=== PATIENT | male | born 1965 | race Caucasian/White ===

== ENCOUNTER 2023-08-13 10:52 | Emergency (ER) | payer OTHER ==
[~2023-08-13] VITALS: Ht 177.8 cm; Wt 101.2 kg
[~2023-08-13 10:52] MED LIST: BEE POLLEN580 MG PO; CIPRO500 MG PO; MULTI VITAMIN1 EACH PO; VITAMIN C500 M4 PO
--- OUTSIDE RECORDS SUMMARY | 2023-08-13 11:02 | XMS ---
PreManage Notification: SHEILA PACHECO [employer] Events No recent Security Events currently on file CRITERIA MET - [facility] - 2 Visits in 30 Days CARE PROVIDERS STEPHANIE [facility] Current PHONE: [phone] Merry has no Care Guidelines for this patient. E.Sonya VISIT COUNT (12 MO.) [address] [place] [address] TOTAL 2 NOTE: Visits indicate total known visits. ED/UCC VISIT TRACKING (12 MO.) 08/13/2023 10:[address] [facility] [place] TYPE: Emergency COMPLAINT: - L HIP PAIN 08/09/2023 16:03 [facility] TYPE: Emergency COMPLAINT: - Fell DIAGNOSES: - Disorder of bone, unspecified - Malignant (primary) neoplasm, unspecified - Strain of muscle, fascia and tendon of unspecified hip, initial encounter - Unspecified injury of muscle, fascia and tendon of the posterior muscle group at thigh level, left thigh, initial encounter - Fall - Fell INPATIENT VISIT TRACKING (12 MO.) No inpatient visits to display in this time frame [email or web address]
[2023-08-13 12:11] LABS: BASOPHILS 0.4 % (0-2); EOSINOPHILS 1.1 % (0-6); HEMATOCRIT 43.8 % (35.0-50.0); HEMOGLOBIN 14.7 g/dL (12.0-18.0); LYMPHOCYTES 22.3 % (24-44); MCH 30.5 (27-36); MCHC 33.6 g/dl (30-36); MONOCYTES 10.2 % (0-12); PLATELET COUNT 211 K/uL (140-440); RBC 4.82 M/ul (4.3-5.7)
[2023-08-13 12:24] LABS: ALBUMIN 2.4 g/dL (3.4-5.0); ALBUMIN/GLOBULIN RATIO 0.4 (1.1-2.4); ANION GAP 16.1 (7-21); BILIRUBIN, TOTAL 0.6 ng/dL (0.2-1.0); BUN/CREATININE RATIO 28.26 (6.0-28.6); CALCIUM 9.5 mg/dL (8.5-10.1); CREATININE, SERUM 0.92 mg/dL (0.70-1.30); POTASSIUM 4.1 mmol/L (3.5-5.1); PROTEIN, TOTAL 8.4 g/dL (6.4-8.2)
[2023-08-13] MEDS ORDERED: HYDROCODON-ACE1 EA11 PO (12:51)
[2023-08-13 12:57] VITALS: BP 140/94
== END 2023-08-13 12:57 | disposition home or self-care (01) ==
LOC: ED 10:52
PROVIDERS: Emergency Medicine
DX: M89.9 Disorder of bone, unspecified (principal); R74.8 Abnormal levels of other serum enzymes; Z79.899 Other long term (current) drug therapy
CPT/HCPCS: 36415; 71046; 80053; 84153; 85025; G0103